=== PATIENT | female | born 1985 | race Caucasian/White ===

== ENCOUNTER → 2018-01-28 19:02 | Outpatient (CLI) | payer OTHER, SELFPAY ==
[2018-02-02 14:10] LABS: HPV Reflexed? NOT INDICATED
== END ==
PROVIDERS: Visit Provider Obstetrics & Gynecology
DX: Z12.4 Encounter for screening for malignant neoplasm of cervix (principal)
CPT/HCPCS: 88175; G0145

== ENCOUNTER → 2020-05-06 | Outpatient (CLI) | payer OTHER, SELFPAY ==
[2016-11-29 18:22] VITALS: BMI 33.3
[2020-05-10 16:08] LABS: Chlamydia By Nucleic Acid AMP Negative (Negative)
[2020-05-10 20:50] LABS: Gonococcus By Nucleic Acid AMP Negative (Negative)
[2020-05-11 15:44] LABS: HPV Reflexed? NOT INDICATED
== END | disposition home or self-care (01) ==
LOC: LABSPEC 14:25
PROVIDERS: Visit Provider Obstetrics & Gynecology
DX: Z12.4 Encounter for screening for malignant neoplasm of cervix (principal); Z11.3 Encounter for screening for infections with a predominantly sexual mode of transmission
CPT/HCPCS: 87491; 87591; 88175; G0145

== ENCOUNTER → 2020-05-26 16:07 | Outpatient (CLI) | payer OTHER, SELFPAY ==
[2016-11-29 18:22] VITALS: BMI 33.3
[2020-05-26 17:23] LABS: Absolute Lymphocyte Count 1.72 X10^3/uL (0.83-4.51); Basophil# 0.03 X10^3/uL; Basophil% 0.3 % (0-1); Eosinophil# 0.04 X10^3/uL; Eosinophils% 0.4 % (0-5); Hematocrit 40.7 % (37-47); Hemoglobin 13.4 g/dL (12.0-15.0); Lymphocyte # 1.72 X10^3/ul (4.0); Lymphocyte % 16.6 % (19-41); Mean Corp Hgb Conc 32.9 g/dL (32-36); Mean Corpuscular Hgb 28.7 pg (27.0-32.0); Mean Corpuscular Volume 87.2 fL (81-99); Mean Platelet Vol. 10.2 fl (6.2-12.0); Monocyte# 0.54 X10^3/uL; Monocyte% 5.2 % (0-10); NRBC Flagged by Analyzer 0 % (0-5); Neutrophil % 76.9 % (47-70); Platelet Count 236 K/mm3 (150-450); RBC Distribution Width CV 13.2 % (11.6-14.6); RBC Distribution Width SD 42.2 fl (35.1-43.9); Red Blood Count 4.67 M/mm3 (4.2-5.4); White Blood Count 10.4 K/mm3 (4.4-11.0)
[2020-05-26 17:37] LABS: Color, Urine Yellow (Yellow); Glucose, Dipstick Normal (Normal); Ketone-Dipstick Negative (Negative); Leukocyte Esterase-Dipstick Negative /ul (Negative); Nitrite-Dipstick Negative (Negative); Occult Blood-Urine Negative /ul (Negative); Protein-Dipstick Negative (Negative); Urine Bilirubin Dipstick Negative (Negative); Urine Clarity Clear (Clear); Urine Urobilinogen Normal (Normal)
[2020-05-26 17:49] LABS: Thyroid Stim Hormone (TSH) 1.29 uIU/mL (0.358-3.74)
[2020-05-27 01:36] LABS: Prenatal RPR NONREACTIVE (NONREACTIVE)
[2020-05-27 09:45] LABS: HIV - WCH Non-Reactive (Nonreactive); Hepatitis B Surface Antigen Non-Reactive (Nonreactive); Hepatitis C Antibody Non-Reactive (Nonreactive); Rubella IgG Reactive (Nonreactive)
== END ==
PROVIDERS: Visit Provider Obstetrics & Gynecology
DX: Z34.81 Encounter for supervision of other normal pregnancy, first trimester (principal)
CPT/HCPCS: 36415; 81002; 84443; 85025; 86703; 86762; 86803; 87340

== ENCOUNTER → 2020-07-22 13:52 | Outpatient (CLI) | payer OTHER, SELFPAY ==
[2016-11-29 18:22] VITALS: BMI 33.3
[2020-07-25 03:06] LABS: AFP MoM Value 2.09 (.); AFP Value-EIA 67.2 ng/mL (.); Comment Report (.); DIA MoM Value 0.89 (.); DIA Value-EIA 123.84 pg/mL (.); DSR (By Age) 360 (.); DSR (Second Trimester) 10000 (.); Gestat. Age Based On As provided (.); Insulin Dep Diabetes No (.); Maternal Age At EDD 34.1 yr (.); hCG MoM 1.25 (.); hCG Value 34761 mIU/mL (.)
== END ==
LOC: WOBLAB 13:56
PROVIDERS: Visit Provider Obstetrics & Gynecology
DX: Z34.82 Encounter for supervision of other normal pregnancy, second trimester (principal)
CPT/HCPCS: 36415; 82105; 82677; 84702

== ENCOUNTER → 2020-10-04 15:17 | Outpatient (CLI) | payer OTHER, SELFPAY ==
[2016-11-29 18:22] VITALS: BMI 33.3
[2020-10-04 15:52] LABS: Hematocrit 35.6 % (37-47); Hemoglobin 11.5 g/dL (12.0-15.0); Mean Corp Hgb Conc 32.3 g/dL (32-36); Mean Corpuscular Hgb 28.2 pg (27.0-32.0); Mean Corpuscular Volume 87.3 fL (81-99); Mean Platelet Vol. 10.7 fl (6.2-12.0); Platelet Count 203 K/mm3 (150-450); RBC Distribution Width SD 44.1 fl (35.1-43.9); Red Blood Count 4.08 M/mm3 (4.2-5.4); White Blood Count 14.4 K/mm3 (4.4-11.0)
[2020-10-04 16:00] LABS: Glucose Challenge Gest 1H 50g 128 mg/dL (70-140)
[2020-10-04 16:05] LABS: AST(SGOT) 15 U/L (15-37); Alanine Aminotransfer ALT/SGPT 18 U/L (13-56); Creatinine, Serum 0.45 mg/dL (0.55-1.02); EST Glomerular Filtration Rate 169 mL/min (>60); Est Glom Filt Rate - Afr Amer 205 mL/min (>60); Uric Acid 4.5 mg/dL (2.6-6.0)
[2020-10-04 16:11] LABS: International Normalized Ratio 1.1; Partial Thromboplast Time 23.7 Seconds (24.1-36.2); Prothrombin Time (Protime)PT. 13.2 SECONDS (11.7-14.9)
== END ==
LOC: WOBLAB 15:21
PROVIDERS: Visit Provider Obstetrics & Gynecology
DX: O13.9 Gestational [pregnancy-induced] hypertension without significant proteinuria, unspecified trimester (principal); Z3A.00 Weeks of gestation of pregnancy not specified
CPT/HCPCS: 36415; 82565; 82950; 84450; 84460; 84550; 85027; 85610; 85730

== ENCOUNTER → 2020-11-04 | Outpatient (CLI) | payer OTHER, SELFPAY ==
[2016-11-29 18:22] VITALS: BMI 33.3
[2020-11-04 15:27] LABS: Hematocrit 33.8 % (37-47); Hemoglobin 10.9 g/dL (12.0-15.0); Mean Corp Hgb Conc 32.2 g/dL (32-36); Mean Corpuscular Hgb 27.2 pg (27.0-32.0); Mean Corpuscular Volume 84.3 fL (81-99); Mean Platelet Vol. 11.1 fl (6.2-12.0); Platelet Count 205 K/mm3 (150-450); RBC Distribution Width CV 14.2 % (11.6-14.6); RBC Distribution Width SD 43.7 fl (35.1-43.9); Red Blood Count 4.01 M/mm3 (4.2-5.4); White Blood Count 12.9 K/mm3 (4.4-11.0)
[2020-11-04 15:32] LABS: AST(SGOT) 22 U/L (15-37); Alanine Aminotransfer ALT/SGPT 19 U/L (13-56); Creatinine, Serum 0.39 mg/dL (0.55-1.02); EST Glomerular Filtration Rate 198 mL/min (>60); Est Glom Filt Rate - Afr Amer 239 mL/min (>60); Prothrombin Time (Protime)PT. 12.5 SECONDS (11.7-14.9); Uric Acid 5.2 mg/dL (2.6-6.0)
[2020-11-04 15:33] LABS: Partial Thromboplast Time 25.6 Seconds (24.1-36.2)
== END | disposition home or self-care (01) ==
LOC: LABSPEC 14:17
PROVIDERS: Visit Provider Obstetrics & Gynecology
DX: O13.9 Gestational [pregnancy-induced] hypertension without significant proteinuria, unspecified trimester (principal); Z3A.00 Weeks of gestation of pregnancy not specified
CPT/HCPCS: 36415; 82565; 84450; 84460; 84550; 85027; 85610; 85730

== ENCOUNTER → 2020-12-03 15:25 | Outpatient (CLI) | payer OTHER, SELFPAY ==
[2016-11-29 18:22] VITALS: BMI 33.3
== END ==
PROVIDERS: Visit Provider Obstetrics & Gynecology
DX: Z36.85 Encounter for antenatal screening for Streptococcus B (principal)
CPT/HCPCS: 87081

== ENCOUNTER 2020-12-13 07:05 | Inpatient (IN) | payer OTHER, SELFPAY ==
[2016-11-29 18:22] VITALS: BMI 33.3
[2020-12-13] VITALS (49 sets, daily range): BP systolic 109–185; BP diastolic 59–103; PULSE 82–115; RESP 16; TEMP 36.4–37.2; O2SAT 91–100; BMI 36.0
[2020-12-13] MEDS: Lactated Ringers 1,000 ML 50 ML IV (08:10)
--- NOTE | 2020-12-13 08:26 | HP.PCM.OB_ITS ---
History and Physical Date of Admission: 12/13/20 Chief complaint: Induction of labor at term for chronic hypertension History present illness: 35-year-old G3, P2 at 38 weeks and 2 days with SINDHU: 12/25/2020 by LMP arrives for induction of labor for chronic hypertension. Denies headache, visual changes, chest pain, shortness of breath, nausea vomiting, right upper quadrant pain. Patient states good movement. complicated by chronic hypertension on labetalol 100 mg twice daily Past medical history: Chronic hypertension Medications: vitamin, labetalol 100 mg twice daily Past surgical history: [place] teeth extraction Allergies: No known drug allergies Social history: Denies smoking, alcohol use, drug use Family history: Denies history DVT or PE Review of systems: Besides above pertinent positives a full review of systems was performed and found to be negative Physical exam: Vitals: Blood pressure 109/83 pulse 89 General: Normal-appearing no acute distress HEENT: Normocephalic atraumatic no cervical lymphadenopathy Cardiac/respiratory: Nonlabored breathing, no use of accessory muscles Abdomen: Soft, nontender, gravid Pelvic exam: Cervical exam 1/50/-3. AROM for minimal to no fluid, FSE placed. Extremities: No peripheral edema normal peripheral pulses Psych: Normal affect normal demeanor nonpressured speech Assessment plan: 35-year-old at 38 weeks and 2 days for induction of labor with chronic hypertension Admit labor and delivery See EFM GBS negative Pitocin induction. AROM performed and FSE placed, minimal to no fluid. At this time will continue to monitor but assume clear fluid Chronic hypertension: Previous on labetalol 100 mg twice daily. Asymptomatic. We will continue to monitor. Routine orders Anesthesia see
[2020-12-13] MEDS: Oxytocin 30 units/NS 500 ml 30 UNITS/500 ML IV.SOLN IV (08:33)
[2020-12-13 08:36] LABS: Absolute Lymphocyte Count 1.68 X10^3/uL (0.83-4.51); Absolute Neutrophil Count 8.6 X10^3/uL (2.0-7.7); Basophil# 0.02 X10^3/uL; Basophil% 0.2 % (0-1); Eosinophil# 0.04 X10^3/uL; Eosinophils% 0.4 % (0-5); Hematocrit 32.9 % (37-47); Hemoglobin 10.4 g/dL (12.0-15.0); Lymphocyte # 1.68 X10^3/ul (0.83-4.51); Lymphocyte % 14.9 % (19-41); Mean Corp Hgb Conc 31.6 g/dL (32-36); Mean Corpuscular Hgb 25.8 pg (27.0-32.0); Mean Corpuscular Volume 81.6 fL (81-99); Mean Platelet Vol. 11.6 fl (6.2-12.0); Monocyte# 0.77 X10^3/uL; Monocyte% 6.8 % (0-10); NRBC Flagged by Analyzer 0 % (0-5); Neutrophil % 76.5 % (47-70); Platelet Count 188 K/mm3 (150-450); RBC Distribution Width CV 15.2 % (11.6-14.6); RBC Distribution Width SD 44.6 fl (35.1-43.9); Red Blood Count 4.03 M/mm3 (4.2-5.4); White Blood Count 11.3 K/mm3 (4.4-11.0)
[2020-12-13] MEDS: Lactated Ringers 500 ML 999 ML IV (11:11)
[2020-12-13] MEDS: fentaNYL-bupivacaine (epidural) 100 ML BAG EPIDURAL (12:00)
--- NOTE | 2020-12-13 12:40 | PN.OBGYN_ITS ---
Subjective Subjective Pain improved now with epidural Objective Data Objective Data Vital Signs: Vital Signs Temp Pulse BP Pulse Ox 98.3 F 94 135/85 H 91 12/13/20 10:31 12/13/20 12:38 12/13/20 12:37 12/13/20 12:38 Weight: 209 lb 14.081 oz Body Mass Index (BMI) 36.0 Intake & Output: Intake and Output for Last 24 Hours 12/11/20 12/12/20 12/13/20 23:59 23:59 23:59 Intake Total 12.43 / 12.43 Output Total 350 / 350 Balance -337.57 / -337.57 Lab / Micro Data Result Diagrams: 12/13/20 08:10 Labs: Laboratory Results - last 24 hr 12/13/20 08:10: WBC 11.3 H, RBC 4.03 L, Hgb 10.4 L, Hct 32.9 L, MCV 81.6, MCH 25.8 L, MCHC 31.6 L, RDW Std Deviation 44.6 H, RDW Coeff of [place] 15.2 H, Plt Count 188, MPV 11.6, Immature Gran % (Auto) 1.200 H, Neut % (Auto) 76.5 H, Lymph % (Auto) 14.9 L, [place] % (Auto) 6.8, Eos % (Auto) 0.4, Baso % (Auto) 0.2, Absolute Neuts (auto) 8.6 H, Absolute Lymphs (auto) 1.68, Nucleated RBC % 0 12/13/20 08:10: Blood Type O POSITIVE, Antibody Screen NEGATIVE Micro: Microbiology 12/13/20 11:25 Mucosa - Nose SARS-CoV-2 Antigen (Rapid) - Final Physical Exam Const alert, oriented x3, no apparent distress, average body habitus, healthy appearing and well nourished HEENT normocephalic and moist oral mucous membranes Head and Scalp: atraumatic Face and Sinus: normal facial exam Neck full ROM Resp normal respiratory effort, no retractions and no use of accessory muscles GI normal to inspection, nondistended, normoactive bowel sounds Narrative: Cervical exam 4/50/-3 Extremity normal to inspection, full ROM and no clubbing, cyanosis or edema Psych mental status grossly normal, affect normal, speech normal and activity/motor behavior normal NST FHR Rate Baby A Baseline: 120 Variability:: Moderate Accelerations:: 15 x 15 Decelerations:: Early FHR Category:: Category I Uterine Activity:: Every 3 to 5 minutes Assessment & Plan (1) : PLAN: Patient seen and examined. Cervical exam /-3. Improved pain with epidural, still some right-sided pain will be seen by anesthesia. We will continue to titrate Pitocin with category 1 tracing.
[2020-12-13] MEDS: Oxytocin 30 units/NS 500 ml 30 UNITS/500 ML IV.SOLN 334 UNITS IV (14:40)
--- NOTE | 2020-12-13 14:51 | EX.PCM.OBRPT ---
Vaginal Delivery Findings Description of Procedure: Normal spontaneous vaginal delivery of a viable female infant, vertex ALEX. Head and shoulders delivered with ease. Cord cut and clamped x2. Baby handed off to mom. Placenta delivered via cord traction and fundal massage. No lacerations noted. EBL 250cc APGARs 8/8
[2020-12-13] MEDS: 0.9% Saline Lock 10 ML Syringe IV (16:17)
[2020-12-13] MEDS: Labetalol 100 MG Tablet PO (21:38)
[2020-12-13] MEDS: Ibuprofen 600 MG Tablet PO (21:38)
[2020-12-14] MEDS: Venlafaxine XR 37.5 MG Capsule PO (00:21)
--- NOTE | 2020-12-14 01:08 | NURSING ---
Late entry d/t pt. care: At 2134 this RN in room for vital signs and assessment. BP measured at 179/86. This RN noticed pt's legs were crossed and pt was talking at the beginning of BP check. Pt. asked to uncross legs and take a few deep breaths, then immediately rechecked BP to be 157/82. Scheduled labetalol given at this time, and pt. informed this RN would recheck BP in 1-2 hours. Recheck at 2315 138/78. Pt. remains asymptomatic and assessment all WNL. Will continue to monitor.
[2020-12-14 04:00] VITALS: BP 130/73; PULSE 81; RESP 16; TEMP 36.8; O2SAT 97
[2020-12-14] MEDS: Ibuprofen 600 MG Tablet PO ×2 (05:31→16:15)
[2020-12-14 07:31] VITALS: BP 143/91; PULSE 86; RESP 16; TEMP 36.1; O2SAT 97
[2020-12-14] MEDS: Acetaminophen 500 MG Tablet 1000 MG PO (08:09)
--- NOTE | 2020-12-14 08:23 | PCM.DC ---
Discharge Instructions Diet Discharge Diet: No restrictions Activity Discharge Activity: Return to Normal Activity, May Drive and May Shower May resume sexual activity in: 4-6 weeks Weight Bearing Status: Weight bearing as tolerated Dressing / Incision Call your doctor if your incision/area has: Continuous Slow Oozing and Foul Smelling Discharge Call your doctor if you observe: Fever of 101 or Higher, Shortness of breath and Chest pain Follow Up Care Please Follow Up With: Ray Lopez MD When: 1 week blood pressure check, 2 week telehealth visit, 6 week visit Test Results: Test results from this visit will be discussed in further detail at your follow-up appointment, if applicable. Discharge Plan Admission Admit Date/Time: 12/13/20 07:05 Attending Provider: Ray Lopez Discharge Orders/Prescriptions Prescriptions: No Action Vits 1 tab PO DAILY RF: 0 labetalol 100 mg tablet PO TID RF: 0 omeprazole 40 mg capsule,delayed release(DR/EC) 40 mg PO QHS RF: 0 desvenlafaxine succinate 50 mg tablet extended release 24 hr 75 mg PO QHS RF: 0 Disposition Discharge Orders: Discharge Patient (Routine); Ordered 12/14/20 Ordered By: Dr. Ray Lopez
--- NOTE | 2020-12-14 08:26 | PCM.PN.OB ---
Subjective Subjective No overnight complaints. Pain well controlled. Objective Data Objective Data Vital Signs: Vital Signs Temp Pulse Resp BP Pulse Ox 97.0 F L 86 16 143/91 H 97 12/14/20 07:31 12/14/20 07:31 12/14/20 07:31 12/14/20 07:31 12/14/20 07:31 Oxygen Delivery Method Room Air Weight: 209 lb 14.081 oz Body Mass Index (BMI) 36.0 Intake & Output: Intake and Output for Last 24 Hours 12/12/20 12/13/20 12/14/20 23:59 23:59 23:59 Intake Total 1430.77 / 1430.77 Output Total 1400 / 1400 Balance 30.77 / 30.77 Lab / Micro Data Result Diagrams: 12/13/20 08:10 Labs: Laboratory Results - last 24 hr 12/13/20 08:10: WBC 11.3 H, RBC 4.03 L, Hgb 10.4 L, Hct 32.9 L, MCV 81.6, MCH 25.8 L, MCHC 31.6 L, RDW Std Deviation 44.6 H, RDW Coeff of [place] 15.2 H, Plt Count 188, MPV 11.6, Immature Gran % (Auto) 1.200 H, Neut % (Auto) 76.5 H, Lymph % (Auto) 14.9 L, [place] % (Auto) 6.8, Eos % (Auto) 0.4, Baso % (Auto) 0.2, Absolute Neuts (auto) 8.6 H, Absolute Lymphs (auto) 1.68, Nucleated RBC % 0 12/13/20 08:10: Blood Type O POSITIVE, Antibody Screen NEGATIVE Micro: Microbiology 12/13/20 11:25 Mucosa - Nose SARS-CoV-2 Antigen (Rapid) - Final Physical Exam Const alert, oriented x3, no apparent distress, average body habitus, healthy appearing and well nourished HEENT normocephalic and moist oral mucous membranes Head and Scalp: atraumatic Face and Sinus: normal facial exam Neck full ROM Resp normal respiratory effort, no retractions and no use of accessory muscles Extremity normal to inspection, full ROM and no clubbing, cyanosis or edema Psych mental status grossly normal, affect normal, speech normal and activity/motor behavior normal Assessment & Plan (1) : PLAN: day 1. Breast-feeding. Pain well controlled. 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
[2020-12-14] MEDS: Labetalol 100 MG Tablet PO ×2 (09:50→18:12)
[2020-12-14 11:31] VITALS: BP 116/58; PULSE 94; RESP 16; TEMP 36.1; O2SAT 96
--- NOTE | 2020-12-14 17:15 | CASEMGMT ---
Social Work Brief Assessment Labor and Delivery Unit Patient Address: [facility] [place] [address] Phone number: [phone] Date of Referral/Notification: 12/14/2020 Time of Referral: 08 Referred By: Verbal notification by nursing staff Date of Intervention: 12/14/2020 Time of Intervention: 1715 Reason for Referral: Maternal history of anxiety. Informant: Medical record and mother of baby (MOB) Marybel Pacheco History: MOB is a 35-year-old female, to the father of baby (FOB) Holger Pacheco. MOB reports they have been for 10 years but together since they were 16 years old. MOB is 3, para 2 now 3 after delivering baby girl David on 12/13/2020. Other children at home include Dewayne, born 08/31/2013 and Josafat born 12/06/2016. 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 FOB works for [employer] MOB reports history of anxiety currently being treated with Pristiq, and reports this medication works well. Denies any history of thoughts of harm to self or others. Denies any history of counseling and reports medication works well. MOB denies any history of substance use or abuse issues. No agency involvement. MOB denies any domestic violence issues in the relationship with the FOB. Assessment: Met with the MOB in her room, introducing to self and social work role. MOB pleasant and cooperative, willing to speak with rn social services. MOB reports the was unplanned, though accepted. Reports to feel connection with this baby. MOB does endorse having some anxiety about the transition from 2 children to 3 children. The FOB does not get to take any extra time off, but MOB reports to have a good support system otherwise. Reports that her mother, [id number], and [id number] all live within 5 minutes of the MOB and FOB is home. Supportive listening offered, and reinforced the importance of self-care. MOB denies any concerns with home-going. Accepted information on mood and anxiety disorders, including counseling options and online supports. No voiced concerns by nursing staff regarding parent-child interactions or bonding. MOB is hopeful to discharge home later this evening. Reports to miss. her other children. Plan: MOB and infant will discharge home. Home-going resource information provided on mood and anxiety disorders. MOB is aware of importance of seeking out support and help should symptoms of mood or anxiety increase or change, and become distressing to the MOB. MOB plans to remain on her medication in the timeframe. No further needs requested or indicated. -FRANSICO Pickering MSW *Information documented in this assessment generated with [employer]*
[2020-12-14 18:08] VITALS: BP 141/84; RESP 16; TEMP 36.3; O2SAT 97
== END 2020-12-14 19:50 | disposition home or self-care (01) | DRG 807 ==
PROVIDERS: Admitting Provider Obstetrics & Gynecology; Referring Provider Obstetrics & Gynecology; Visit Provider Obstetrics & Gynecology
DX: O10.92 Unspecified pre-existing hypertension complicating childbirth (principal); Z37.0 Single live birth; O99.613 Diseases of the digestive system complicating pregnancy, third trimester; K21.9 Gastro-esophageal reflux disease without esophagitis; Z3A.38 38 weeks gestation of pregnancy; Z79.899 Other long term (current) drug therapy
CPT/HCPCS: 59025; 59050; 85025; 86850; 86900; 86901; 87426; 99218; J7120; A4216; G0378